=== PATIENT | male | born 1965 | race Caucasian/White ===

== ENCOUNTER 2016-10-26 20:07 | Emergency (ER) | payer OTHER ==
[~2016-10-26] VITALS: Ht 162.6 cm; Wt 60.6 kg
[2016-10-26 20:20] VITALS: Ht 162.6 cm; Wt 60.6 kg
[2016-10-26] MEDS ORDERED: KETOROLAC 30 MG INJ IV STA (20:39)
[2016-10-26] MEDS ORDERED: CLINDAMYCIN 600 MG/D5W (PMX) 50 ML IVPB SCH (21:00)
--- NOTE | 2016-10-26 21:07 | ERD ---
ER Documentation Chief Complaint Date/Time DATE: 10/26/16 TIME: 21:01 Chief Complaint RASH TO LOWER BACK AND ANUPAM LEGS. STATES THERES PUSS HPI 51-year-old male presents here in emergency department for complaints of a bump in the buttock area lower extremities, and a bump in the right lower abdominal area for 3 days. Patient is complaining of pain, sharp pain, 4/10 scale, is worse up with the same area. Patient noted some pus coming out from the rashes on the buttocks area. Patient did not take any medications for pain. Patient denies any fever or chills. Patient denies any family members with the same type of symptoms ROS All systems reviewed and are negative except as per history of present illness. Medications Home Meds Reported Medications [none] Unknown Strength No Conflict Check 10/26/16 Allergies Allergies: Coded Allergies: No Known Allergy (Unverified , 10/26/16) PMhx/Soc Medical and Surgical Hx: pt denies Medical Hx, pt denies Surgical Hx Hx Alcohol Use: Yes (socially) Hx Substance Use: Yes (smokes meth) Hx Tobacco Use: Yes Smoking Status: Current every day smoker FmHx Family History: No coronary disease, No diabetes, No other Physical Exam Vitals Vital Signs Date Time Temp Pulse Resp B/P Pulse Ox O2 Delivery O2 Flow Rate FiO2 10/26/16 20:20 97.1 107 18 144/96 98 Physical Exam GENERAL: The patient is well developed and appropriate for usual state of health, in no apparent distress. CHEST: Clear to auscultation bilaterally. There are no rales, wheezes or rhonchi. HEART: Regular rate and rhythm. No murmurs, clicks, rubs or gallops. No S3 or S4. ABDOMEN: Soft, nontender and nondistended. Good bowel sounds. No rebound or guarding. No gross peritonitis. No gross organomegaly or masses. No Garcia sign or McBurney point tenderness. BACK: No midline or flank tenderness. EXTREMITIES: Equal pulses bilaterally. There is no peripheral clubbing, cyanosis or edema. No focal swelling or erythema. Full range of motion. Grossly neurovascularly intact. NEURO: Alert and oriented. Cranial nerves 2-12 intact. Motor strength in all 4 extremities with 5/5 strength. Sensation grossly intact. Normal speech and gait. SKIN: Noted rash in the buttocks area and upper legs area, noted 3 cm erythematous indurated area on the right abdominal area, tender on palpation, no fluctuance noted. There is no apparent ecchymosis or petechia. The skin is warm and dry. HEMATOLOGIC AND LYMPHATIC: There is no evidence of excessive bruising or lymphedema. No gross cervical, axillary, or inguinal lymphadenopathy. Results 24 hrs Current Medications Medications (Trade) Dose Ordered Sig/Susan Route PRN Reason Start Time Stop Time Status Last Admin Dose Admin Clindamycin HCl/ Dextrose (Cleocin 600 Mg/ D5W (Pmx)) 50 ml @ 50 mls/hr ONCE IVPB 10/26/16 21:00 10/26/16 21:59 Ketorolac Tromethamine (Toradol) 30 mg ONCE STAT IV 10/26/16 20:39 10/26/16 20:41 DC IV clindamycin and Toradol is given here in emergency department. Procedures/MDM Medical decision making: Patient symptoms is likely consistent with MRSA infection, multiple abscesses but nonindurated, incision and drainage is not indicated at this time. Patient does not have any symptoms of sepsis at this time. Patient was given IV antibiotics here in emergency department for initial treatment, was sent home with oral antibiotics. No symptoms of any necrosis, and symptoms of any neurovascular compromise. Patient was given prescription for clindamycin, ibuprofen, [place], is advised to take medications as prescribed , apply warm compresses on affected area. Patient is advised to return to emergency department for any worsening symptoms Departure Diagnosis: Primary Impression: Abscess Condition: Stable Patient Instructions: Abscess, Antiobiotic Treatment Only Additional Instructions: patient was given prescription for clindamycin, ibuprofen, [place], is advised to take medications as prescribed, apply warm compresses on affected area. Patient is advised to return to emergency department for any worsening symptoms ERIC BARROS NP Oct 26, 2016 21:07
[2016-10-26] MEDS ORDERED: CLIN-73 PO (21:08)
[2016-10-26] MEDS ORDERED: HYDR-906 PO (21:08)
[2016-10-26] MEDS ORDERED: IBUP-1542 PO (21:08)
[2016-10-26 22:26] VITALS: BP 129/87; PULSE 89; RESP 17; TEMP 97
== END 2016-10-26 22:28 | disposition home or self-care (01) ==
LOC: FTE 20:07
DX: L02.31 Cutaneous abscess of buttock (principal); L02.415 Cutaneous abscess of right lower limb; L02.416 Cutaneous abscess of left lower limb; L02.211 Cutaneous abscess of abdominal wall; F17.210 Nicotine dependence, cigarettes, uncomplicated
CPT/HCPCS: 96374; 96375; J1885; Z7502; Z7610

== ENCOUNTER 2016-10-30 10:03 | Emergency (ER) | payer OTHER ==
[~2016-10-30] VITALS: Ht 160 cm; Wt 60.0 kg
[~2016-10-30 10:03] MED LIST: CLIN-73 PO; HYDR-906 PO; IBUP-1542 PO
[2016-10-30 10:09] VITALS: Ht 160 cm; Wt 60.0 kg
[2016-10-30] MEDS ORDERED: BACTDS PO (10:38)
[2016-10-30] MEDS ORDERED: CEPH-443 PO (10:38)
[2016-10-30] MEDS ORDERED: IBUP-1542 PO (10:38)
[2016-10-30] MEDS ORDERED: TRIMETHOPRIM/SULFAMETHOX (DS) TAB PO ONE (11:00)
[2016-10-30] MEDS ORDERED: IBUPROFEN 800 MG TAB PO ONE (11:00)
[2016-10-30] MEDS ORDERED: CEPHALEXIN 500 MG CAP PO ONE (11:00)
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
== END 2016-10-30 10:45 | disposition home or self-care (01) ==
LOC: E/R 10:03
DX: L02.31 Cutaneous abscess of buttock (principal); L02.211 Cutaneous abscess of abdominal wall; L03.317 Cellulitis of buttock; L03.311 Cellulitis of abdominal wall
CPT/HCPCS: 99284

== ENCOUNTER 2017-02-23 11:50 | Emergency (ER) | payer OTHER ==
[~2017-02-23] VITALS: Ht 162.6 cm; Wt 57.0 kg
[~2017-02-23 11:50] MED LIST changes: +BACTDS PO; +CEPH-443 PO
[2017-02-23 11:54] VITALS: Ht 162.6 cm; Wt 57.0 kg
[2017-02-23] MEDS ORDERED: SULF1TAB31 PO (12:46)
[2017-02-23] MEDS ORDERED: IBUP-1542 PO (12:47)
[2017-02-23] MEDS ORDERED: CEPH-443 PO (12:47)
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
== END 2017-02-23 12:50 | disposition home or self-care (01) ==
LOC: FTE 11:50
DX: L02.413 Cutaneous abscess of right upper limb (principal)
CPT/HCPCS: 99284

== ENCOUNTER 2017-04-16 11:32 | Emergency (ER) | payer OTHER ==
[~2017-04-16] VITALS: Ht 157.5 cm; Wt 58.5 kg
[~2017-04-16 11:32] MED LIST changes: +SULF1TAB31 PO
[2017-04-16 11:34] VITALS: Ht 157.5 cm; Wt 58.5 kg
[2017-04-16] MEDS ORDERED: LORAZEPAM 1 MG TAB PO ONE (12:00)
[2017-04-16] MEDS ORDERED: OLANZAPINE 5 MG TAB PO ONE (12:00)
[2017-04-16 12:08] LABS: BASOPHIL # 0.1 10^3/ul (0.0-0.1); BASOPHILS % 0.8 % (0.0-2.0); EOSINOPHILS % 0.1 % (0.0-7.0); HEMATOCRIT 41.4 % (42.0-52.0); HEMOGLOBIN 13.8 g/dl (14.0-18.0); LYMPHOCYTES # 1.3 10^3/ul (0.8-2.9); LYMPHOCYTES % 17.2 % (15.0-51.0); MEAN CORPUSCULAR HEMOGLOBIN 29.6 pg (29.0-33.0); MEAN CORPUSCULAR HGB CONC 33.3 g/dl (32.0-37.0); MEAN CORPUSCULAR VOLUME 88.8 fl (82.0-101.0); MEAN PLATELET VOLUME 10.2 fl (7.4-10.4); MONOCYTE # 0.5 10^3/ul (0.3-0.9); MONOCYTES % 7.1 % (0.0-11.0); NEUTROPHILS % 74.7 % (39.0-77.0); PLATELET COUNT 302 10^3/UL (140-415); RED BLOOD COUNT 4.66 10^6/ul (4.70-6.10); RED CELL DISTRIBUTION WIDTH 13.3 % (11.5-14.5); WHITE BLOOD COUNT 7.3 10^3/ul (4.8-10.8)
[2017-04-16] MEDS ORDERED: ARIP5TAB7 PO (12:10)
[2017-04-16] MEDS ORDERED: BUPR75TA9 PO (12:11)
[2017-04-16] MEDS ORDERED: GABA300C16 PO (12:11)
[2017-04-16] MEDS ORDERED: FOLI-49 PO (12:12)
[2017-04-16 12:25] LABS: ALANINE AMINOTRANSFERASE 35 IU/L (13-69); ALBUMIN 4.2 g/dl (3.3-4.9); ALBUMIN/GLOBULIN RATIO 1.02; ALKALINE PHOSPHATASE 123 IU/L (42-121); ANION GAP 14 (8-16); ASPARTATE AMINO TRANSFERASE 34 IU/L (15-46); BILIRUBIN,INDIRECT 0.2 mg/dl (0-1.1); BILIRUBIN,TOTAL 0.2 mg/dl (0.2-1.3); BLOOD UREA NITROGEN 13 mg/dl (7-20); CALCIUM 9.3 mg/dl (8.4-10.2); CARBON DIOXIDE 25 mmol/L (21-31); CHLORIDE 104 mmol/L (97-110); CREATININE 0.73 mg/dl (0.61-1.24); GLUCOSE 76 mg/dl (70-220); POTASSIUM 3.8 mmol/L (3.5-5.1); SODIUM 139 mmol/L (135-144); TOTAL PROTEIN 8.3 g/dl (6.1-8.1)
[2017-04-16 12:36] LABS: ACETAMINOPHEN < 10.0 ug/ml (10.0-30.0); ETHANOL < 10.0 mg/dl; SALICYLATE < 1.0 mg/dl (5.0-30.0)
--- NOTE | 2017-04-16 12:57 | ERA ---
ER Documentation Chief Complaint Date/Time DATE: 04/16/17 TIME: 12:53 Chief Complaint feeling anxiety , deneis si/hi , hearing voices HPI This is a 51-year-old male who presents to the emergency room for evaluation of anxiety, and hearing voices. The patient states that he is normally supposed to be taking psychiatric medications however he stopped taking them because he does not like the way they make him feel. The patient denies any homicidal or suicidal ideation however he came to the ER for help with his symptoms. He states that he has not been able to sleep and states that he has been under a lot of stress. ROS All systems reviewed and are negative except as per history of present illness. Medications Home Meds Reported Medications Folic Acid* (Folic Acid*) 1 Mg Tablet, 1 MG PO DAILY, TAB 04/16/17 Gabapentin* (Gabapentin*) 300 Mg Capsule, 300 MG PO QAM, #60 CAP 04/16/17 Bupropion Hcl* (Bupropion Hcl*) 75 Mg Tablet, 150 MG PO BID, TAB 04/16/17 Aripiprazole* (Abilify*) 5 Mg Tab, 5 MG PO DAILY, #30 TAB 04/16/17 Discontinued Reported Medications [none] Unknown Strength No Conflict Check 10/26/16 Discontinued Scripts Ibuprofen* (Motrin*) 600 Mg Tab, 600 MG PO Q6, #20 TAB Prov:JUDITH GORDILLO PA-C 02/23/17 Cephalexin* (Keflex*) 500 Mg Capsule, 500 MG PO QID for 10 Days, CAP Prov:JUDITH GORDILLO PA-C 02/23/17 Sulfamethoxazole/Trimethoprim* (Bactrim Ds* Tablet) 1 Each Tablet, 1 TAB PO BID , #10 TAB Prov:JUDITH GORDILLO PA-C 02/23/17 Ibuprofen* (Motrin*) 600 Mg Tab, 600 MG PO Q6H Y for PAIN AND OR ELEVATED TEMP, #30 TAB Prov:GREENPREETI DO 10/30/16 Cephalexin* (Keflex*) 500 Mg Capsule, 500 MG PO QID for 10 Days, CAP Prov:GREEN,PREETI DO 10/30/16 Sulfamethoxazole-Trimethoprim* (Bactrim* DS) 800-160 Mg Tab, 1 TAB PO BID for 10 Days, TAB Prov:GREEN,PREEIT DO 10/30/16 Hydrocodone/Acetaminophen ([place] 5-325 Tablet) 1 Each Tablet, 1 TAB PO Q6H Y for SEVERE PAIN LEVEL 7-10, #20 TAB Prov:ERIC BARROS NP 10/26/16 Ibuprofen* (Motrin*) 600 Mg Tab, 600 MG PO Q6H Y for PAIN AND OR ELEVATED TEMP, #30 TAB Prov:ERIC BARROS NP 10/26/16 Clindamycin Hcl* (Clindamycin Hcl*) 300 Mg Capsule, 300 MG PO TID for 10 Days, CAP Prov:ERIC BARROS NP 10/26/16 Allergies Allergies: Coded Allergies: No Known Allergy (Unverified , 04/16/17) PMhx/Soc History of Surgery: No Anesthesia Reaction: No Hx Neurological Disorder: No Hx Respiratory Disorders: No Hx Cardiac Disorders: No Hx Psychiatric Problems: No Hx Miscellaneous Medical Probl: No Hx Alcohol Use: No (socially) Hx Substance Use: Yes (smokes/INJECTS meth) Hx Tobacco Use: No Smoking Status: Current every day smoker Physical Exam Vitals Vital Signs Date Time Temp Pulse Resp B/P Pulse Ox O2 Delivery O2 Flow Rate FiO2 04/16/17 11:34 98.1 113 18 125/90 98 Physical Exam INITIAL VITAL SIGNS: Reviewed by me GENERAL: The patient is well developed and appropriate for usual state of health in no apparent distress HEENT: Pupils equal, round, and reactive to light. EOMI. There is no scleral icterus. NECK: C-spine is soft and supple, there is no meningismus. There is no cervical lymphadenopathy. LUNGS: Clear to auscultation bilaterally. There are no rales, wheezes or rhonchi. HEART: Regular rate and rhythm, no murmurs, clicks, rubs or gallops. ABDOMEN: Soft, non-tender, non-distended. There are bowel sounds in all four quadrants. No rebound or guarding. EXTREMITIES: There is no peripheral cyanosis or edema. No focal swelling or erythema. NEUROLOGICAL: The patient moves all four extremities with 5/5 strength. Cranial nerves II - XII are intact. Normal gait. Alert and oriented SKIN: There is no apparent rash or petechiae. HEME/LYMPHATIC: There is no evidence of excessive bruising or lymphedema. PSYCHIATRIC: The patient appears to be anxious, paranoid, and has tangential thought Result Diagram: 04/16/17 1156 04/16/17 1156 Results 24 hrs Laboratory Tests Test 04/16/17 11:56 White Blood Count 7.310^3/ul Red Blood Count 4.6610^6/ul Hemoglobin 13.8g/dl Hematocrit 41.4% Mean Corpuscular Volume 88.8fl Mean Corpuscular Hemoglobin 29.6pg Mean Corpuscular Hemoglobin Concent 33.3g/dl Red Cell Distribution Width 13.3% Platelet Count 27547^3/UL Mean Platelet Volume 10.2fl Neutrophils % 74.7% Lymphocytes % 17.2% Monocytes % 7.1% Eosinophils % 0.1% Basophils % 0.8% Nucleated Red Blood Cells % 0.0/100WBC Neutrophils # (Manual) 5.510^3/ul Lymphocytes # 1.310^3/ul Monocytes # 0.510^3/ul Eosinophils # 0.010^3/ul Basophils # 0.110^3/ul Nucleated Red Blood Cells # 0.010^3/ul Sodium Level 139mmol/L Potassium Level 3.8mmol/L Chloride Level 104mmol/L Carbon Dioxide Level 25mmol/L Anion Gap 14 Blood Urea Nitrogen 13mg/dl Creatinine 0.73mg/dl Glucose Level 76mg/dl Calcium Level 9.3mg/dl Total Bilirubin 0.2mg/dl Direct Bilirubin 0.00mg/dl Indirect Bilirubin 0.2mg/dl Aspartate Amino Transf (AST/SGOT) 34IU/L Alanine Aminotransferase (ALT/SGPT) 35IU/L Alkaline Phosphatase 123IU/L Total Protein 8.3g/dl Albumin 4.2g/dl Globulin 4.10g/dl Albumin/Globulin Ratio 1.02 Salicylates Level < 1.0mg/dl Acetaminophen Level < 10.0ug/ml Ethyl Alcohol Level < 10.0mg/dl Current Medications Medications (Trade) Dose Ordered Sig/Susan Route PRN Reason Start Time Stop Time Status Last Admin Dose Admin Olanzapine (Zyprexa) 10 mg ONCE ONCE PO 04/16/17 12:00 04/16/17 12:01 DC 04/16/17 12:19 Lorazepam (Ativan) 1 mg ONCE ONCE PO 04/16/17 12:00 04/16/17 12:01 DC 04/16/17 12:19 Procedures/MDM This 51-year-old male presents to the ER for evaluation of auditory hallucinations, agitation, and psychiatric evaluation. The patient denies any homicidal or suicidal ideation however the patient did have tangential thought. He is complaining that " people are following me". The patient has been medically cleared and will be evaluated by tele-psychiatric physician for determination of whether or not this patient meets inpatient criteria. Departure Diagnosis: Primary Impression: Auditory hallucinations Additional Impression: Paranoid schizophrenia Condition: Stable KANWAL ARZOLA DO Apr 16, 2017 12:53
--- NOTE | 2017-04-16 14:29 | PSY ---
Date/Time of Note Date/Time of Note DATE: 04/16/17 TIME: 14:24 Psychiatric Subjective Eval Subjective Evaluation Patient location: emergency Chief Complaint: feeling anxiety , deneis si/hi , hearing voices History of present illness 51 yo male with hx schizophrenia and meth use presents to ED c/o anxiety, abdominal pain and hearing voices. He has been of meds and admits to meth use yesterday. Pt was given ZYprexa 10 mg And Ativan 1 mg. Now the pt is drowsy , he falls asleep in a middle of the sentence, speech is slurred, inaudible. he actually fell asleep whil RN at bedside was trying to keep him awake and while chewing food. Per RN, pt denies Si or HI, says he is off meds. Past psychiatric history prior dx of schizophrenia frequent ED visits due to skin abscesses caused by injecting meth Hospitalization: yes Medical history Problems Medical Problems: (1) Abscess Status: Acute (2) Abscess Status: Acute (3) Abscess Status: Acute (4) Auditory hallucinations Status: Acute (5) Cellulitis Status: Acute (6) Cellulitis Status: Acute (7) Paranoid schizophrenia Status: Acute Allergies: Coded Allergies: No Known Allergy (Unverified , 04/16/17) Substance Abuse Substance abuse history: Yes Psychiatric Objective Eval Mental Status Examination: Appearance: Disheveled Eye Contact: None Psychomotor Activity: Other Behavior: Cooperative Speech: Slurred AFFECT: Appropriate Mood: Appropriate/Full Thought Content: Hallucinations Suicidal: No Homicidal: No Cognition: Drowsy Laboratory Results Laboratory Tests Test 04/16/17 11:56 White Blood Count 7.310^3/ul Red Blood Count 4.6610^6/ul Hemoglobin 13.8g/dl Hematocrit 41.4% Mean Corpuscular Volume 88.8fl Mean Corpuscular Hemoglobin 29.6pg Mean Corpuscular Hemoglobin Concent 33.3g/dl Red Cell Distribution Width 13.3% Platelet Count 98523^3/UL Mean Platelet Volume 10.2fl Neutrophils % 74.7% Lymphocytes % 17.2% Monocytes % 7.1% Eosinophils % 0.1% Basophils % 0.8% Nucleated Red Blood Cells % 0.0/100WBC Neutrophils # (Manual) 5.510^3/ul Lymphocytes # 1.310^3/ul Monocytes # 0.510^3/ul Eosinophils # 0.010^3/ul Basophils # 0.110^3/ul Nucleated Red Blood Cells # 0.010^3/ul Sodium Level 139mmol/L Potassium Level 3.8mmol/L Chloride Level 104mmol/L Carbon Dioxide Level 25mmol/L Anion Gap 14 Blood Urea Nitrogen 13mg/dl Creatinine 0.73mg/dl Glucose Level 76mg/dl Calcium Level 9.3mg/dl Total Bilirubin 0.2mg/dl Direct Bilirubin 0.00mg/dl Indirect Bilirubin 0.2mg/dl Aspartate Amino Transf (AST/SGOT) 34IU/L Alanine Aminotransferase (ALT/SGPT) 35IU/L Alkaline Phosphatase 123IU/L Total Protein 8.3g/dl Albumin 4.2g/dl Globulin 4.10g/dl Albumin/Globulin Ratio 1.02 Salicylates Level < 1.0mg/dl Acetaminophen Level < 10.0ug/ml Ethyl Alcohol Level < 10.0mg/dl Assessment and Plan Assessment/Diagnosis [place] I: Amphetamine withdrawals. Amphetamine use disorder Recommendation/Plan Follow-up/Disposition d/w with pt's RN at bedside: pt is drowsy, not able to participate in the evaluation, not even able to keep his eyes open. PLease call for the eval then the pt will be fully awake and alert. MONA BUCIO MD Apr 16, 2017 14:29
[2017-04-16 20:24] LABS: ADD UMIC NO; UR ASCORBIC ACID 20 mg/dL (NEGATIVE); UR BILIRUBIN (Dip) NEGATIVE (NEGATIVE); UR BLOOD (Dip) NEGATIVE (NEGATIVE); UR CLARITY CLEAR (CLEAR); UR COLOR YELLOW (YELLOW); UR GLUCOSE (Dip) NEGATIVE (NEGATIVE); UR KETONES (Dip) NEGATIVE (NEGATIVE); UR LEUKOCYTE ESTERASE (Dip) NEGATIVE Leu/ul (NEGATIVE); UR NITRITE (Dip) NEGATIVE (NEGATIVE); UR SPECIFIC GRAVITY (Dip) 1.024 (1.003-1.030); UR TOTAL PROTEIN (Dip) NEGATIVE (NEGATIVE); UR UROBILINOGEN (Dip) NEGATIVE (NEGATIVE)
[2017-04-16 20:48] LABS: BARBITURATES Negative (NEGATIVE); BENZODIAZEPINES Negative (NEGATIVE); CANNABINOIDS Negative (NEGATIVE); COCAINE Negative (NEGATIVE); OPIATES Negative (NEGATIVE)
--- NOTE | 2017-04-17 06:07 | EN ---
Date/Time of Note Date/Time of Note DATE: 04/17/17 TIME: 06:06 ER Progress Note Observation Note: Time: 4 hours Family Hx: No Hypertension Evaluation: Multiple exams showed improving symptoms and no evidence of clinical deterioration He is now awaiting to be evaluated by telepsychiatrist FREDI HINDS MD Apr 17, 2017 06:07
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
[2017-04-17] MEDS ORDERED: GABAPENTIN 300 MG CAP PO SCH (11:30)
[2017-04-17] MEDS ORDERED: ARIPIPRAZOLE 5 MG TAB PO SCH (11:30)
[2017-04-17] MEDS ORDERED: BUPROPION 100 MG TAB PO SCH (11:30)
--- NOTE | 2017-04-17 14:14 | EN ---
Date/Time of Note Date/Time of Note DATE: 04/17/17 TIME: 14:12 ER Progress Note Patient was evaluated by [facility] and found to not meet criteria for 5150. The staff reporter felt that the patient had had paranoia due to methamphetamine use, and now that he has been medicated and is off of drugs his symptoms have resolved. I personally evaluated the patient, and he acknowledges using methamphetamine yesterday. He states that yesterday he was feeling paranoid, but these thoughts of subsided. He states that he only has these problems when he uses drugs and is not taking his occasions for schizophrenia. The patient denies any suicidal or homicidal ideation, he denies auditory hallucinations, he denies any thoughts of persecution or fears that he is being followed. He was appropriate and communicative during the evaluation. He was able to contract for safety in the event of recurrence of symptoms, and states that he has a supply of medications at home that he intends to take. I will discharge him home as I do not see any indication for further hospitalization at this time. The patient had previously been medically cleared. He denies any current skin infections or abscess. MARILU ROPER MD Apr 17, 2017 14:10
[2017-04-17 15:24] VITALS: BP 112/73; PULSE 75; RESP 16; TEMP 98.2
== END 2017-04-17 15:40 | disposition home or self-care (01) ==
LOC: E/R 11:32
DX: F20.0 Paranoid schizophrenia (principal); F17.210 Nicotine dependence, cigarettes, uncomplicated
CPT/HCPCS: 36415; 80053; 80306; 80307; 81003; 85025; Z7502; Z7610; 99283

== ENCOUNTER 2017-07-21 21:10 | Emergency (ER) | payer OTHER ==
[~2017-07-21] VITALS: Ht 165.1 cm; Wt 65.6 kg
[~2017-07-21 21:10] MED LIST changes: +ARIP5TAB7 PO; -BACTDS PO; +BUPR75TA9 PO; -CEPH-443 PO; -CLIN-73 PO; +FOLI-49 PO; +GABA300C16 PO; -HYDR-906 PO; -IBUP-1542 PO; -SULF1TAB31 PO
[2017-07-21 21:32] VITALS: Ht 165.1 cm; Wt 65.6 kg
[2017-07-22 00:32] LABS: BASOPHILS % 0.7 % (0.0-2.0); EOSINOPHILS # 0.1 10^3/ul (0.0-0.5); EOSINOPHILS % 2.4 % (0.0-7.0); HEMATOCRIT 41.1 % (42.0-52.0); HEMOGLOBIN 13.8 g/dl (14.0-18.0); LYMPHOCYTES # 2.2 10^3/ul (0.8-2.9); LYMPHOCYTES % 41.7 % (15.0-51.0); MEAN CORPUSCULAR HEMOGLOBIN 29.9 pg (29.0-33.0); MEAN CORPUSCULAR HGB CONC 33.6 g/dl (32.0-37.0); MEAN PLATELET VOLUME 10.4 fl (7.4-10.4); MONOCYTE # 0.5 10^3/ul (0.3-0.9); MONOCYTES % 8.9 % (0.0-11.0); NEUTROPHIL # 2.5 10^3/ul (1.6-7.5); NEUTROPHILS % 46.1 % (39.0-77.0); PLATELET COUNT 253 10^3/UL (140-415); RED BLOOD COUNT 4.62 10^6/ul (4.70-6.10); RED CELL DISTRIBUTION WIDTH 13.5 % (11.5-14.5); WHITE BLOOD COUNT 5.4 10^3/ul (4.8-10.8)
[2017-07-22 00:39] LABS: ADD UMIC NO; UR ASCORBIC ACID NEGATIVE (NEGATIVE); UR BILIRUBIN (Dip) NEGATIVE (NEGATIVE); UR BLOOD (Dip) NEGATIVE (NEGATIVE); UR CLARITY CLEAR (CLEAR); UR COLOR STRAW (YELLOW); UR GLUCOSE (Dip) NEGATIVE (NEGATIVE); UR KETONES (Dip) NEGATIVE (NEGATIVE); UR LEUKOCYTE ESTERASE (Dip) NEGATIVE Leu/ul (NEGATIVE); UR NITRITE (Dip) NEGATIVE (NEGATIVE); UR SPECIFIC GRAVITY (Dip) 1.008 (1.003-1.030); UR TOTAL PROTEIN (Dip) NEGATIVE (NEGATIVE); UR UROBILINOGEN (Dip) NEGATIVE (NEGATIVE)
[2017-07-22 00:56] LABS: ALANINE AMINOTRANSFERASE 27 IU/L (13-69); ALBUMIN 3.6 g/dl (3.3-4.9); ALBUMIN/GLOBULIN RATIO 0.97; ALKALINE PHOSPHATASE 111 IU/L (42-121); ANION GAP 15 (8-16); ASPARTATE AMINO TRANSFERASE 28 IU/L (15-46); BILIRUBIN,INDIRECT 0.1 mg/dl (0-1.1); BILIRUBIN,TOTAL 0.1 mg/dl (0.2-1.3); BLOOD UREA NITROGEN 6 mg/dl (7-20); CALCIUM 8.8 mg/dl (8.4-10.2); CARBON DIOXIDE 24 mmol/L (21-31); CHLORIDE 111 mmol/L (97-110); CREATININE 0.56 mg/dl (0.61-1.24); GLUCOSE 79 mg/dl (70-220); SODIUM 147 mmol/L (135-144); TOTAL PROTEIN 7.3 g/dl (6.1-8.1)
[2017-07-22 01:34] LABS: ACETAMINOPHEN < 10.0 ug/ml (10.0-30.0); SALICYLATE < 1.0 mg/dl (5.0-30.0)
[2017-07-22 01:36] LABS: CANNABINOIDS Negative (NEGATIVE)
[2017-07-22 01:41] LABS: BARBITURATES Negative (NEGATIVE); BENZODIAZEPINES Negative (NEGATIVE); COCAINE Negative (NEGATIVE); OPIATES Negative (NEGATIVE)
--- NOTE | 2017-07-22 03:54 | ERD ---
ER Documentation Chief Complaint Chief Complaint Pt reports HI and depression with pain HPI 52-year-old male with complaints of depression and pain and says he is doing worse with going to hurt other people. History of previous psychiatric disorder. Denies any other current complaints. ROS All systems reviewed and are negative except as per history of present illness. Medications Home Meds Reported Medications Folic Acid* (Folic Acid*) 1 Mg Tablet, 1 MG PO DAILY, TAB 04/16/17 Gabapentin* (Gabapentin*) 300 Mg Capsule, 300 MG PO QAM, #60 CAP 04/16/17 Bupropion Hcl* (Bupropion Hcl*) 75 Mg Tablet, 150 MG PO BID, TAB 04/16/17 Aripiprazole* (Abilify*) 5 Mg Tab, 5 MG PO DAILY, #30 TAB 04/16/17 Allergies Allergies: Coded Allergies: No Known Allergy (Unverified , 04/16/17) PMhx/Soc Medical and Surgical Hx: pt denies Medical Hx, pt denies Surgical Hx History of Surgery: No Anesthesia Reaction: No Hx Neurological Disorder: No Hx Respiratory Disorders: No Hx Cardiac Disorders: No Hx Psychiatric Problems: Yes (schitzoprenia, depression) Hx Miscellaneous Medical Probl: No Hx Alcohol Use: Yes (heavy) Hx Substance Use: No Hx Tobacco Use: Yes Smoking Status: Current every day smoker Physical Exam Vitals Vital Signs Date Time Temp Pulse Resp B/P Pulse Ox O2 Delivery O2 Flow Rate FiO2 07/22/17 02:47 97.8 64 16 113/75 97 Room Air 07/22/17 01:04 97.8 67 16 105/70 97 Room Air 07/21/17 21:32 98.0 115 16 137/72 98 Physical Exam Const: [] Head: Atraumatic Eyes: Normal Conjunctiva ENT: Normal External Ears, Nose and Mouth. Neck: Full range of motion..~ No meningismus. Resp: Clear to auscultation bilaterally Cardio: Regular rate and rhythm, no murmurs Abd: Soft, non tender, non distended. Normal bowel sounds Skin: No petechiae or rashes Back: No midline or flank tenderness Ext: No cyanosis, or edema Neur: Awake and alert Psych: Normal Mood and Affect Result Diagram: 07/22/17 0011 07/22/17 0011 Results 24 hrs Laboratory Tests Test 07/22/17 00:11 White Blood Count 5.410^3/ul Red Blood Count 4.6210^6/ul Hemoglobin 13.8g/dl Hematocrit 41.1% Mean Corpuscular Volume 89.0fl Mean Corpuscular Hemoglobin 29.9pg Mean Corpuscular Hemoglobin Concent 33.6g/dl Red Cell Distribution Width 13.5% Platelet Count 35081^3/UL Mean Platelet Volume 10.4fl Neutrophils % 46.1% Lymphocytes % 41.7% Monocytes % 8.9% Eosinophils % 2.4% Basophils % 0.7% Nucleated Red Blood Cells % 0.0/100WBC Neutrophils # 2.510^3/ul Lymphocytes # 2.210^3/ul Monocytes # 0.510^3/ul Eosinophils # 0.110^3/ul Basophils # 0.010^3/ul Nucleated Red Blood Cells # 0.010^3/ul Urine Color STRAW Urine Clarity CLEAR Urine pH 5.0 Urine Specific [place] 1.008 Urine Ketones NEGATIVEmg/dL Urine Nitrite NEGATIVEmg/dL Urine Bilirubin NEGATIVEmg/dL Urine Urobilinogen NEGATIVEmg/dL Urine Leukocyte Esterase NEGATIVELeu/ul Urine Hemoglobin NEGATIVEmg/dL Urine Glucose NEGATIVEmg/dL Urine Total Protein NEGATIVEmg/dl Sodium Level 147mmol/L Potassium Level 3.0mmol/L Chloride Level 111mmol/L Carbon Dioxide Level 24mmol/L Anion Gap 15 Blood Urea Nitrogen 6mg/dl Creatinine 0.56mg/dl Glucose Level 79mg/dl Calcium Level 8.8mg/dl Total Bilirubin 0.1mg/dl Direct Bilirubin 0.00mg/dl Indirect Bilirubin 0.1mg/dl Aspartate Amino Transf (AST/SGOT) 28IU/L Alanine Aminotransferase (ALT/SGPT) 27IU/L Alkaline Phosphatase 111IU/L Total Protein 7.3g/dl Albumin 3.6g/dl Globulin 3.70g/dl Albumin/Globulin Ratio 0.97 Salicylates Level < 1.0mg/dl Urine Opiates Screen Negative Acetaminophen Level < 10.0ug/ml Urine Barbiturates Negative Urine Amphetamines Screen POSITIVE Urine Benzodiazepines Screen Negative Urine Cocaine Screen Negative Urine Cannabinoids Negative Ethyl Alcohol Level 164.0mg/dl Procedures/MDM Patient's behavioral symptoms have stabilized while in the department. Patient is medically cleared and appropriate for psychiatric evaluation and work up. No e/o neurologic, toxic, infectious, or metabolic cause. She found to be stable for outpatient management by telemetry psychiatry. Discharge home with risperidone. Departure Diagnosis: Primary Impression: Depression Depression Type: unspecified Qualified Code: F32.9 - Depression, unspecified depression type Condition: Stable Patient Instructions: VERONIQUE Oconnor Jul 22, 2017 03:53
[2017-07-22] MEDS ORDERED: RIS1 PO (04:14)
[2017-07-22 07:14] VITALS: BP 126/67; PULSE 65; RESP 18; TEMP 97.1
== END 2017-07-22 07:51 | disposition home or self-care (01) ==
LOC: E/R 21:10
DX: F32.9 Major depressive disorder, single episode, unspecified (principal); F17.210 Nicotine dependence, cigarettes, uncomplicated; R40.2132 Coma scale, eyes open, to sound, at arrival to emergency department; R40.2252 Coma scale, best verbal response, oriented, at arrival to emergency department; R40.2362 Coma scale, best motor response, obeys commands, at arrival to emergency department
CPT/HCPCS: 36415; 80053; 80306; 80307; 81003; 85025; Z7502

== ENCOUNTER 2017-09-26 00:27 | Emergency (ER) | END 2017-09-26 03:30 | disposition home or self-care (01) ==

== ENCOUNTER 2017-10-16 17:06 | Emergency (ER) | END 2017-10-16 20:35 | disposition home or self-care (01) ==

== ENCOUNTER 2017-11-13 19:07 | Emergency (ER) | END 2017-11-14 00:13 | disposition home or self-care (01) ==

== ENCOUNTER 2018-01-20 18:59 | Emergency (ER) | END 2018-01-20 20:56 | disposition home or self-care (01) ==

== ENCOUNTER 2018-07-13 09:51 | Emergency (ER) | END 2018-07-13 11:10 | disposition home or self-care (01) ==

== ENCOUNTER 2019-01-04 03:33 | Emergency (ER) | payer OTHER ==
[~2019-01-04] VITALS: Ht 162.6 cm; Wt 68.0 kg
[~2019-01-04 03:33] MED LIST changes: +AMOX1TAB10 PO; +ARIP5TAB14 PO; -ARIP5TAB7 PO; +CEPH-443 PO; +IBUP-1542 PO; +NAPR-985 PO; +RISP-7 PO; +SULF1TAB31 PO
[2019-01-04 03:42] VITALS: BP 127/81; PULSE 100; RESP 20; Ht 162.6 cm; Wt 68.0 kg
--- NOTE | 2019-01-04 05:35 | ERD ---
ER Documentation Chief Complaint Chief Complaint bib ra [id number] c/o medication refill for anxiety med HPI 53-year-old male, with history of anxiety, presents to the emergency department, requesting a refill for lorazepam. The patient is complaining of anxiety. He denies visual or auditory hallucinations. No suicidal or homicidal ideation. ROS All systems reviewed and are negative except as per history of present illness. Medications Home Meds Active Scripts Lorazepam* (Ativan*) 0.5 Mg Tablet, 0.5 MG PO QHS PRN for ANXIETY, #10 TAB Prov:RANJAN JAMES MD 01/04/19 Naproxen* (Naprosyn*) 500 Mg Tablet, 500 MG PO BID PRN for PAIN AND/OR INFLAMMATION, #30 TAB Prov:ETELVINA CARDOZA PA-C 07/13/18 Amoxicillin/Potassium Clav (Amox-Clav 875-125 mg Tablet) 875-125 mg Tab, 1 TAB PO BID for 10 Days, #20 TAB Prov:ETELVINA CARDOZA PA-C 07/13/18 Risperidone* (Risperdal*) 1 Mg Tablet, 1 MG PO BID, #10 TAB Prov:ERIC BARROS COLLECTION SUPERVISOR 01/20/18 Ibuprofen* (Motrin*) 600 Mg Tab, 600 MG PO Q6H PRN for PAIN AND OR ELEVATED TEMP, #30 TAB Prov:ERIC BARROS [employer]LECTION SUPERVISOR 01/20/18 Ibuprofen* (Motrin*) 600 Mg Tab, 600 MG PO Q6, #30 TAB Prov:VERONIQUE YAN PA-C 11/13/17 Sulfamethoxazole/Trimethoprim* (Bactrim Ds* Tablet) 1 Each Tablet, 1 TAB PO BID, #14 TAB Prov:VERONIQUE YAN PA-C 11/13/17 Cephalexin* (Keflex*) 500 Mg Capsule, 500 MG PO QID for 7 Days, #28 CAP Prov:VERONIQUE YAN PA-C 11/13/17 Amoxicillin/Potassium Clav (Amox-Clav 875-125 mg Tablet) 875-125 mg Tab, 1 TAB PO BID for 7 Days, #14 TAB Prov:MARGARET MCGRATH PA-C 10/16/17 Ibuprofen* (Motrin*) 600 Mg Tab, 600 MG PO Q6, #30 TAB Prov:MARGARET MCGRATH PA-C 10/16/17 Ibuprofen* (Motrin*) 600 Mg Tab, 600 MG PO Q6, #20 TAB Prov:FREDI HINDS MD 09/26/17 Reported Medications Folic Acid* (Folic Acid*) 1 Mg Tablet, 1 MG PO DAILY, TAB 04/16/17 Gabapentin* (Gabapentin*) 300 Mg Capsule, 300 MG PO QAM, #60 CAP 04/16/17 Bupropion Hcl* (Bupropion Hcl*) 75 Mg Tablet, 150 MG PO BID, TAB 04/16/17 Aripiprazole* (Abilify*) 5 Mg Tab, 5 MG PO DAILY, #30 TAB 04/16/17 Allergies Allergies: Coded Allergies: No Known Allergy (Unverified , 04/16/17) PMhx/Soc History of Surgery: Yes (hand, eyes sx) Anesthesia Reaction: No Hx Neurological Disorder: No Hx Respiratory Disorders: No Hx Cardiac Disorders: No Hx Psychiatric Problems: Yes (schizophrenia, bipolar, depression) Hx Miscellaneous Medical Probl: Yes (psych: Paranoid,bipolar, chronic pain) Hx Alcohol Use: Yes Hx Substance Use: Yes (methamphetamine) Hx Tobacco Use: Yes Smoking Status: Current every day smoker FmHx Family History: No diabetes, No coronary disease Physical Exam Vitals Vital Signs Date Temp Pulse Resp B/P (MAP) Pulse Ox O2 O2 Flow FiO2 Time Delivery Rate 01/04/19 97.4 100 20 127/81 99 03:42 (96) Physical Exam Const: No acute distress Head: Atraumatic Eyes: Normal Conjunctiva ENT: Normal External Ears, Nose and Mouth. Neck: Full range of motion. No meningismus. Resp: Clear to auscultation bilaterally Cardio: Regular rate and rhythm, no murmurs Abd: Soft, non tender, non distended. Normal bowel sounds Skin: No petechiae or rashes Back: No midline or flank tenderness Ext: No cyanosis, or edema Neur: Awake and alert Psych: Normal Mood and Affect Procedures/MDM Differential diagnosis include but not limited to: Depression, anxiety, migraine, thyroid disease, electrolyte imbalance. Low suspicion for acute coronary event, aortic dissection, CVA. Physical examination and clinical presentation consistent most likely with anxiety. During the ED course the patient remained stable, no new complaints. Results and clinical impression discussed with patient who agrees with management. The patient is stable to be treated outpatient and will be discharged home with a Rx for lorazepam, some side effects of prescribed medications (headache, rash, nausea, vomiting, diarrhea, drowsiness, habituation, bleeding, hypertension, interactions with other medications) were reviewed. The patient was instructed to follow up with the primary care provider in the next 48h. If symptoms persist, worsen or new symptoms develop, then patient should return to the ED immediately. Instructions explained and given directly by me to the patient with acknowledgment and demonstrated understanding. Disclaimer: Inadvertent spelling and grammatical errors are likely due to EHR/dictation software use and do not reflect on the overall quality of patient care. Also, please note that the electronic time recorded on this note does not necessarily reflect the actual time of the patient encounter. Departure Diagnosis: Primary Impression: Encounter for medication refill Condition: Stable Patient Instructions: Taking Medicine Safely Additional Instructions: Thank you very much for allowing us to participate in your care. Your health and safety is our top priority at [facility]. The evaluation in the emergency department has been done to rule out an acute emergency, therefore, chronic conditions like malignancy or other diseases have not been evaluated; therefore, you need to follow up with a primary care provider in the next 48h. If symptoms persist, worsen or new symptoms develop, then patient should return to the ED immediately. Call your primary care doctor TOMORROW for an appointment during the next 2-4 days and bring all the information provided. Have prescriptions filled and follow precisely the directions on the label. If the symptoms get worse and your provider is unavailable, return to the Emergency Department immediately. RANJAN JAMES MD January 04, 2019 05:35
[2019-01-04] MEDS ORDERED: LORA-441 PO (05:47)
== END 2019-01-04 05:55 | disposition home or self-care (01) ==
LOC: FTE 03:33
DX: Z76.0 Encounter for issue of repeat prescription (principal); F17.210 Nicotine dependence, cigarettes, uncomplicated
CPT/HCPCS: 99281

== ENCOUNTER 2019-06-24 19:56 | Emergency (ER) | payer OTHER ==
[~2019-06-24] VITALS: Ht 162.6 cm; Wt 62.1 kg
[~2019-06-24 19:56] MED LIST changes: +HYDR-4011 PO; +LORA-441 PO
[2019-06-24 19:59] VITALS: BP 144/84; PULSE 102; RESP 20; Ht 162.6 cm; Wt 62.1 kg
[2019-06-24] MEDS ORDERED: CLINDAMYCIN 300 MG INJ IM ONE (21:00)
== END 2019-06-24 21:51 | disposition home or self-care (01) ==
LOC: FTE 19:56
DX: L03.90 Cellulitis, unspecified (principal); F17.210 Nicotine dependence, cigarettes, uncomplicated
CPT/HCPCS: 96372; Z7502; Z7610